=== PATIENT | female | born 1930 | race Caucasian/White ===

== ENCOUNTER 2016-09-21 12:11 | Day surgery (SDC) | payer OTHER ==
[2016-09-19 21:00] LABS: HEMATOCRIT 45.3 % (36.0-48.0); HEMOGLOBIN 14.9 g/dL (12.0-16.0)
[2016-09-19 21:07] LABS: BUN (BLOOD UREA NITROGEN) 13 MG/DL (6-23); CALCIUM, SERUM 9.9 MG/DL (8.5-10.4); CHLORIDE, SERUM 105 MMOL/L (96-112); CO2 (CARBON DIOXIDE) 28 MMOL/L (24-34); CREATININE 0.75 MG/DL (0.55-1.02); GFR AFRICAN AMERICAN 85 ML/MIN (>=60); GFR NON AFRICAN AMERICAN 74 ML/MIN (>=60); GLUCOSE, SERUM 75 MG/DL (60-99); SODIUM, SERUM 142 MMOL/L (135-148)
--- NOTE | ~2016-09-21 | OP ---
Record Of Operation [facility] [address] [place]. [address] NAME: LAURA CARRION : 34 STATUS : [facility]#: [id number] AGE: 85 ADM/REG DATE : 09/21/16 MR#: [id number] REPORT SERV DATE: 09/21/16 DICTATED BY: LIZA PINEDA DATE: 09/21/16 REPORT STATUS : Draft TRANSCRIBED BY: MODWill DATE: 09/21/16 DATE OF PROCEDURE: 09/21/2016 PREOPERATIVE DIAGNOSES: 1. Epiglottic mass on the right. 2. Left cheek lesion. POSTOPERATIVE DIAGNOSES: 1. 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 2. Basal cell carcinoma, left cheek. PROCEDURE: 1. Microscopic direct laryngoscopy with tumor/vocal cord excision. 2. Punch biopsy and wide local excision of basal cell carcinoma, left cheek. INDICATIONS: Laura Carrion is an 85-year-old female with a history of a sense of fullness and pain in the throat. CT scan demonstrated a mass on the anterior surface of the epiglottis that appeared to be consistent with a cyst. I counseled her about the risks, benefits, and alternatives of this procedure. The risks include, but are not limited to pain, bleeding, infection, and scarring. I quoted her a 2% risk of recurrence of this cyst. In addition, she says she has a nonhealing lesion on the left anterior cheek. This was previously excised by another surgeon and she can not remember the diagnosis nor how long ago this was done. So, we will do a punch biopsy of that first and determinate diagnosis and then excise that if needed. PROCEDURE IN DETAIL: Laura was brought to the operating room and positioned on the table in supine fashion, general endotracheal anesthesia was induced. The table was rotated 90 degrees. The patient was prepped and draped in the usual fashion. We injected the left cheek with 0.5% Marcaine with 1:200,000 epinephrine and waited approximately 3 minutes and then performed a generous punch biopsy with a 4 mm punch, which returned frozen section diagnosis of basal cell carcinoma. This was closed with 4-0 chromic suture in an interrupted fashion while we were performing the epiglottis resection, just for hemostasis. I placed a tooth guard in the upper teeth and using the Dedo laryngoscope, we got a good look of the mouth, the pyriform sinuses, the true vocal cords, the upper esophageal sphincter, and the vallecula. The only lesion of note was an apparent mucosal cyst on the anterior surface of the right side of the epiglottis. This was sharply incised with a straight scissor. Cultures were taken and the lesion was excised with the scissor, the cup and the cup forceps. This was approximately 15 mm in diameter. Once we were finished with that, I used topical epinephrine for hemostasis and that totally controlled all the bleeding. No electrocautery was used on the epiglottis. This was thoroughly irrigated and at the end of this procedure, we suctioned out the hypopharynx and the glottis and the subglottic area. No additional bleeding or fluid or clots were present. The Dedo laryngoscope was removed and the Lewy suspension as well, and also the tooth guard. The patient was cleaned up. Record Of [place] [id number] [place]. [address] NAME: LAURA CARRION : 34 STATUS : [facility]#: [id number] AGE: 85 ADM/REG DATE : 09/21/16 MR#: [id number] REPORT SERV DATE: 09/21/16 DICTATED BY: LIZA PINEDA DATE: 09/21/16 REPORT STATUS : Draft TRANSCRIBED BY: LESTER DATE: 09/21/16 The left cheek was prepped in the usual fashion for a sterile skin excision and an elliptical excision was designed within relaxed skin tension lines. This was sharply excised with the 15 blade and we used the scissors to get the deep margin. This was marked with a stitch at 12 o'clock and sent to the pathologist for frozen section and apparently all the lateral and deep margins were clear. Hemostasis was obtained with the unipolar electrocautery. The 4-0 Vicryl undyed was utilized to close the subcutaneous layers and then we put a 5-0 Prolene on the skin to reapproximate the skin edge, in the usual fashion. At the end, this was dressed with bacitracin. The patient was returned to anesthesia control. She was extubated in the operating room and moved to the recovery room in good condition. FINDINGS: 1. Estimated blood loss was 5 mL. 2. Total fluids given were 800 mL of Ringer's lactate. 3. Epiglottic cyst on the anterior surface of the epiglottis, completely excised. 4. The punch biopsy of the left cheek showed a basal cell carcinoma and this was completely excised according to the margins by the second frozen section on this lesion. No other lesions on the skin of the face or neck were worthy of a biopsy at this time. NEREIDA/LESTER Liza Pineda M.D. / [id number] CC: Faith Abreu MD
[~2016-09-21 12:11] MED LIST: AMB5 PO; CLARIT10 PO; COZAAR100 MG PO; MYRBETRIQ50 MG PO
== END 2016-09-21 17:19 | disposition home or self-care (01) ==
LOC: SDC 12:11
PROVIDERS: Otolaryngology
PROC: 0CBR8ZZ Excision of Epiglottis, Via Natural or Artificial Opening Endoscopic (ICD-10-PCS; 2016-09-21)
PROC: 0HQ1XZZ Repair Face Skin, External Approach (ICD-10-PCS; principal; 2016-09-21 14:30)
PROC: 0WB20ZZ Excision of Face, Open Approach (ICD-10-PCS; 2016-09-21 14:30)
DX: C44.319 Basal cell carcinoma of skin of other parts of face (principal); J38.7 Other diseases of larynx; I10 Essential (primary) hypertension; J45.909 Unspecified asthma, uncomplicated; M19.90 Unspecified osteoarthritis, unspecified site; Z88.1 Allergy status to other antibiotic agents; Z79.899 Other long term (current) drug therapy; Z90.710 Acquired absence of both cervix and uterus; Z90.89 Acquired absence of other organs; Z96.1 Presence of intraocular lens; Z98.41 Cataract extraction status, right eye; Z98.42 Cataract extraction status, left eye; Z98.890 Other specified postprocedural states
CPT/HCPCS: 36415; 80048; 85014; 85018; 87015; 87070; 87075; 87102; 87116; 87205; 88305; 88331; 88332; 93005; J2405; J2710; J3010